=== PATIENT | male | born 1960 | race Caucasian/White ===

== ENCOUNTER 2018-02-19 15:09 | Inpatient (IN) | payer MEDICAID ==
[2018-02-19 17:48] LABS: ADD MAN DIFF? NO
[2018-02-19 17:51] LABS: WHITE BLOOD COUNT 8.7 10^3/ul (4.8-10.8)
[2018-02-19 17:51] LABS: BASOPHIL # 0.1 10^3/ul (0.0-0.1); BASOPHILS % 1.4 % (0.0-2.0); EOSINOPHILS # 0.2 10^3/ul (0.0-0.5); EOSINOPHILS % 2.6 % (0.0-7.0); HEMATOCRIT 28.2 % (42.0-52.0); HEMOGLOBIN 8.7 g/dl (14.0-18.0); LYMPHOCYTES # 1.6 10^3/ul (0.8-2.9); LYMPHOCYTES % 17.7 % (15.0-51.0); MEAN CORPUSCULAR HEMOGLOBIN 24.9 pg (29.0-33.0); MEAN CORPUSCULAR HGB CONC 30.9 g/dl (32.0-37.0); MEAN CORPUSCULAR VOLUME 80.8 fl (82.0-101.0); MEAN PLATELET VOLUME 9.4 fl (7.4-10.4); MONOCYTE # 0.6 10^3/ul (0.3-0.9); MONOCYTES % 6.8 % (0.0-11.0); NEUTROPHIL # 6.2 10^3/ul (1.6-7.5); NEUTROPHILS % 70.9 % (39.0-77.0); PLATELET COUNT 415 10^3/UL (140-415); RED BLOOD COUNT 3.49 10^6/ul (4.70-6.10); RED CELL DISTRIBUTION WIDTH 14.6 % (11.5-14.5)
[2018-02-19 18:10] LABS: INR 0.98; PROTIME 13.1 Sec (11.9-14.9)
[2018-02-19 18:14] LABS: ALANINE AMINOTRANSFERASE 26 IU/L (13-69); ALBUMIN 4.1 g/dl (3.3-4.9); ALBUMIN/GLOBULIN RATIO 0.83; ALKALINE PHOSPHATASE 152 IU/L (42-121); ANION GAP 12 (5-13); ASPARTATE AMINO TRANSFERASE 26 IU/L (15-46); BILIRUBIN,INDIRECT 0.2 mg/dl (0-1.1); BILIRUBIN,TOTAL 0.2 mg/dl (0.2-1.3); BLOOD UREA NITROGEN 45 mg/dl (7-20); CALCIUM 9.4 mg/dl (8.4-10.2); CARBON DIOXIDE 16 mmol/L (21-31); CHLORIDE 110 mmol/L (97-110); GLUCOSE 82 mg/dl (70-220); SODIUM 138 mmol/L (135-144)
[2018-02-19] MEDS: PIPER-TAZO 3.375 GM IV (PMX) 100 ML IVPB (18:14)
[2018-02-19 18:19] LABS: POTASSIUM 6.7 mmol/L (3.5-5.1)
[2018-02-19 18:24] LABS: TROPONIN-I < 0.012 ng/ml (0.000-0.120)
[2018-02-19] MEDS: NA POLYST SULFON 15 GM/60 ML BTL PO (19:01)
[2018-02-19] MEDS: CA CHLORIDE 10% 10 ML SYRINGE IV (19:01)
[2018-02-19] MEDS: NA BICARBONATE 8.4% 50 ML SYG IV (19:01)
[2018-02-19] MEDS: FUROSEMIDE 40 MG INJ IV (19:02)
[2018-02-19] MEDS: ALBUTEROL 0.5% (NEB) 2.5 MG/0.5 ML AMP INH (19:07)
[2018-02-19] MEDS ORDERED: ACETAMINOPHEN 650 MG SUPP PR (19:30)
[2018-02-19] MEDS ORDERED: VANCOMYCIN IV PER PHARMACY XX (19:30)
[2018-02-19] MEDS ORDERED: ONDANSETRON 4 MG INJ IV ×2 (19:30→21:30)
[2018-02-19] MEDS ORDERED: NACL 0.9% 3 ML SYG IV (19:30)
[2018-02-19] MEDS: VANCOMYCIN 1 GM (PMX) 250 ML IVPB (19:34)
[2018-02-19] MEDS: SOD CHLORIDE 0.9% 1,000 ML IV (19:55)
[2018-02-19] MEDS ORDERED: GLUCOSE GEL 15 GRAM TUBE PO ×2 (20:00)
[2018-02-19] MEDS ORDERED: GLUCOSE GEL 15 GRAM TUBE BUCCAL (20:00)
[2018-02-19] MEDS ORDERED: GLUCAGON 1 MG INJ IM (20:00)
[2018-02-19] MEDS ORDERED: DEXTROSE 50% 50 ML SYRINGE IV ×2 (20:00)
[2018-02-19 20:03] LABS: IRON 56 ug/dl (35-150)
[2018-02-19 20:13] LABS: % IRON SATURATION 18 % SAT (22-52); TOTAL IRON BINDING CAPACITY 305 ug/dl (241-421)
[2018-02-19 21:28] LABS: ANION GAP 11 (5-13); BLOOD UREA NITROGEN 45 mg/dl (7-20); CALCIUM 9.7 mg/dl (8.4-10.2); CARBON DIOXIDE 16 mmol/L (21-31); CHLORIDE 110 mmol/L (97-110); CREATININE 3.43 mg/dl (0.61-1.24); GLUCOSE 196 mg/dl (70-220); POTASSIUM 5.1 mmol/L (3.5-5.1); SODIUM 137 mmol/L (135-144)
[2018-02-19] MEDS ORDERED: ACETAMINOPHEN 325 MG TAB PO (21:30)
[2018-02-19] MEDS: VANCOMYCIN 1 GM in 250 ML IVPB (22:54)
[2018-02-19] MEDS: INSULIN ASPART [NOVOLOG] 3 ML PEN SC (23:12)
[2018-02-20] MEDS: ACCU-CHEK XX (01:50)
[2018-02-20 05:32] LABS: ADD MAN DIFF? NO
[2018-02-20 05:36] LABS: WHITE BLOOD COUNT 6.5 10^3/ul (4.8-10.8)
[2018-02-20 05:36] LABS: BASOPHIL # 0.1 10^3/ul (0.0-0.1); BASOPHILS % 1.7 % (0.0-2.0); EOSINOPHILS # 0.2 10^3/ul (0.0-0.5); EOSINOPHILS % 2.8 % (0.0-7.0); HEMATOCRIT 23.3 % (42.0-52.0); HEMOGLOBIN 7.1 g/dl (14.0-18.0); LYMPHOCYTES # 1.2 10^3/ul (0.8-2.9); LYMPHOCYTES % 18.9 % (15.0-51.0); MEAN CORPUSCULAR HEMOGLOBIN 24.7 pg (29.0-33.0); MEAN CORPUSCULAR HGB CONC 30.5 g/dl (32.0-37.0); MEAN CORPUSCULAR VOLUME 80.9 fl (82.0-101.0); MEAN PLATELET VOLUME 9.4 fl (7.4-10.4); MONOCYTE # 0.5 10^3/ul (0.3-0.9); MONOCYTES % 8.1 % (0.0-11.0); NEUTROPHIL # 4.4 10^3/ul (1.6-7.5); PLATELET COUNT 356 10^3/UL (140-415); RED BLOOD COUNT 2.88 10^6/ul (4.70-6.10); RED CELL DISTRIBUTION WIDTH 14.4 % (11.5-14.5)
[2018-02-20 06:06] LABS: ALANINE AMINOTRANSFERASE 28 IU/L (13-69); ALBUMIN 2.8 g/dl (3.3-4.9); ALKALINE PHOSPHATASE 118 IU/L (42-121); ANION GAP 8 (5-13); ASPARTATE AMINO TRANSFERASE 16 IU/L (15-46); BILIRUBIN,INDIRECT 0.2 mg/dl (0-1.1); BILIRUBIN,TOTAL 0.2 mg/dl (0.2-1.3); BLOOD UREA NITROGEN 44 mg/dl (7-20); CALCIUM 9.5 mg/dl (8.4-10.2); CARBON DIOXIDE 21 mmol/L (21-31); CHLORIDE 110 mmol/L (97-110); CHOL/HDL RATIO 3.6 RATIO; CHOLESTEROL 150 mg/dl (100-200); CREATININE 3.29 mg/dl (0.61-1.24); GLUCOSE 127 mg/dl (70-220); HDL CHOLESTEROL 41 mg/dl (28-71); LDL CHOLESTEROL,CALCULATED 95 mg/dl; MAGNESIUM 2.1 mg/dl (1.7-2.5); SODIUM 139 mmol/L (135-144); TOTAL PROTEIN 6.3 g/dl (6.1-8.1); TRIGLYCERIDES 70 mg/dl (0-149)
[2018-02-20 06:08] LABS: POTASSIUM 6.2 mmol/L (3.5-5.1)
[2018-02-20 06:17] LABS: FREE THYROXINE INDEX (Calc) 2.13 ug/ml (0.65-3.89); T3 UPTAKE 40.9 % (23.5-40.5); T4 (THYROXINE) 5.2 ug/dl (5.5-11.0)
[2018-02-20] MEDS ORDERED: ALBUTEROL 0.083% (NEB) 2.5 MG/3 ML AMP (06:25)
[2018-02-20] MEDS: ALBUTEROL 0.083% (NEB) 2.5 MG/3 ML AMP HHN (06:27)
[2018-02-20] MEDS: NA POLYST SULFON 15 GM/60 ML BTL PO ×2 (06:44→15:15)
[2018-02-20] MEDS: SOD CHLORIDE 0.9% 500 ML IV (06:46)
[2018-02-20 07:14] LABS: HEMOGLOBIN A1C 6.7 % (0-5.9)
[2018-02-20] MEDS: INSULIN ASPART [NOVOLOG] 3 ML PEN SC ×4 (08:00→20:04)
[2018-02-20] MEDS: AMLODIPINE 10 MG TAB PO (08:17)
[2018-02-20] MEDS: FLUCONAZOLE 200 MG TAB PO (08:17)
[2018-02-20 13:08] LABS: ADD UMIC YES; UR ASCORBIC ACID NEGATIVE (NEGATIVE); UR BILIRUBIN (Dip) NEGATIVE (NEGATIVE); UR BLOOD (Dip) 1+ mg/dL (NEGATIVE); UR CLARITY CLEAR (CLEAR); UR COLOR YELLOW (YELLOW); UR GLUCOSE (Dip) 1+ mg/dL (NEGATIVE); UR KETONES (Dip) NEGATIVE (NEGATIVE); UR LEUKOCYTE ESTERASE (Dip) NEGATIVE Leu/ul (NEGATIVE); UR NITRITE (Dip) NEGATIVE (NEGATIVE); UR RBC 1 /HPF (0-5); UR SPECIFIC GRAVITY (Dip) 1.014 (1.003-1.030); UR TOTAL PROTEIN (Dip) 2+ mg/dl (NEGATIVE); UR UROBILINOGEN (Dip) NEGATIVE (NEGATIVE); UR WBC 0 /HPF (0-5)
[2018-02-20] MEDS: SOD CHLORIDE 0.9% 1,000 ML IV (14:29)
[2018-02-20] MEDS: CEFEPIME 1GM/50 ML (PMX) 50 ML IVPB (14:30)
[2018-02-20] MEDS ORDERED: DAPTOMYCIN 385 MG in SOD CHLORIDE 0.9% 100 ML IVPB (14:30)
[2018-02-20 14:41] LABS: ANION GAP 6 (5-13); BLOOD UREA NITROGEN 41 mg/dl (7-20); CALCIUM 9.5 mg/dl (8.4-10.2); CARBON DIOXIDE 23 mmol/L (21-31); CHLORIDE 114 mmol/L (97-110); CREATININE 3.11 mg/dl (0.61-1.24); GLUCOSE 115 mg/dl (70-220); POTASSIUM 5.9 mmol/L (3.5-5.1); SODIUM 143 mmol/L (135-144)
[2018-02-20 15:20] LABS: SODIUM,URINE RANDOM 91 mmol/L (30-90)
[2018-02-20 15:20] LABS: CREATININE,URINE RANDOM 93.75 mg/dl (20-370)
[2018-02-20 16:11] LABS: POTASSIUM 5.6 mmol/L (3.5-5.1)
[2018-02-20] MEDS: METOPROLOL 25 MG TAB PO (16:43)
[2018-02-20] MEDS: DAPTOMYCIN 385 MG in SOD CHLORIDE 0.9% 100 ML IVPB (16:51)
[2018-02-21 00:07] LABS: IMMEDIATE SPIN CROSSMATCH 1 2
[2018-02-21] MEDS: ACCU-CHEK XX (01:19)
[2018-02-21] MEDS: SOD CHLORIDE 0.9% 1,000 ML IV (03:25)
[2018-02-21 06:03] LABS: CREATINE KINASE 87 IU/L (23-200)
[2018-02-21] MEDS: METOPROLOL 25 MG TAB PO ×3 (06:25→20:05)
[2018-02-21] MEDS: hydrALAzine 20 MG INJ IV (06:37)
[2018-02-21] MEDS: INSULIN ASPART [NOVOLOG] 3 ML PEN SC ×4 (08:00→20:14)
[2018-02-21] MEDS: CEFEPIME 1GM/50 ML (PMX) 50 ML IVPB (08:05)
[2018-02-21] MEDS: FLUCONAZOLE 200 MG TAB PO (08:05)
[2018-02-21] MEDS: AMLODIPINE 10 MG TAB PO (08:06)
[2018-02-21 08:20] LABS: ANION GAP 10 (5-13); BLOOD UREA NITROGEN 37 mg/dl (7-20); CALCIUM 9.2 mg/dl (8.4-10.2); CARBON DIOXIDE 19 mmol/L (21-31); CHLORIDE 116 mmol/L (97-110); CREATININE 2.55 mg/dl (0.61-1.24); GLUCOSE 98 mg/dl (70-220); POTASSIUM 4.9 mmol/L (3.5-5.1); SODIUM 145 mmol/L (135-144)
[2018-02-21] MEDS ORDERED: HYDROmorphONE 1 MG/5 ML IV SYRINGE IV ×3 (09:00)
[2018-02-21] MEDS ORDERED: DIPHENHYDRAMINE 50 MG INJ IV (09:00)
[2018-02-21] MEDS ORDERED: FENTAnyl 50 MCG/ML VIAL IV ×2 (09:00)
[2018-02-21] MEDS ORDERED: ONDANSETRON 4 MG INJ IV (09:00)
[2018-02-21] MEDS ORDERED: LEVALBUTEROL (NEB) 1.25 MG/0.5 ML AMP HHN (09:00)
[2018-02-21] MEDS ORDERED: IPRATROPIUM (NEB) 0.5 MG/2.5 ML AMP HHN (09:00)
[2018-02-21] MEDS ORDERED: LABETALOL HCL 20MG INJ IV (09:00)
[2018-02-21] MEDS ORDERED: hydrALAzine 20 MG INJ IV (09:00)
[2018-02-21 09:45] LABS: ADD MAN DIFF? NO
[2018-02-21 09:47] LABS: BASOPHIL # 0.1 10^3/ul (0.0-0.1); BASOPHILS % 1.9 % (0.0-2.0); EOSINOPHILS # 0.3 10^3/ul (0.0-0.5); EOSINOPHILS % 5.6 % (0.0-7.0); LYMPHOCYTES # 1.6 10^3/ul (0.8-2.9); LYMPHOCYTES % 29.9 % (15.0-51.0); MEAN CORPUSCULAR HEMOGLOBIN 25.9 pg (29.0-33.0); MEAN CORPUSCULAR VOLUME 83.6 fl (82.0-101.0); MEAN PLATELET VOLUME 9.8 fl (7.4-10.4); MONOCYTE # 0.5 10^3/ul (0.3-0.9); MONOCYTES % 8.8 % (0.0-11.0); NEUTROPHIL # 2.8 10^3/ul (1.6-7.5); NEUTROPHILS % 53.4 % (39.0-77.0); PLATELET COUNT 368 10^3/UL (140-415); RED BLOOD COUNT 3.47 10^6/ul (4.70-6.10)
[2018-02-21 09:47] LABS: WHITE BLOOD COUNT 5.3 10^3/ul (4.8-10.8)
[2018-02-21] MEDS ORDERED: FENTAnyl 50 MCG/ML VIAL (10:40)
[2018-02-21] MEDS ORDERED: LIDOCAINE 2% (SDV) 5 ML INJ (10:41)
[2018-02-21] MEDS ORDERED: PROPOFOL 20 ML (10:41)
[2018-02-21] MEDS ORDERED: METOCLOPRAMIDE 10 MG INJ (10:41)
[2018-02-21] MEDS ORDERED: MIDAZOLAM 1 MG/ML 2 ML INJ (10:41)
[2018-02-21] MEDS ORDERED: PHENYLephrine (100 MCG/ML) 5ML SYG (10:41)
[2018-02-21] MEDS ORDERED: ROPIVACAINE 0.5 % 30 ML VIAL (10:51)
[2018-02-21] MEDS ORDERED: POLYMYXIN B 500000 UNIT INJ (10:59)
[2018-02-21] MEDS: VANCOMYCIN 1 GM INJ (11:33)
[2018-02-22] MEDS ORDERED: hydrALAzine 20 MG INJ IV (01:00)
[2018-02-22] MEDS: ACCU-CHEK XX (02:44)
[2018-02-22 05:49] LABS: ADD MAN DIFF? NO
[2018-02-22 05:51] LABS: WHITE BLOOD COUNT 7.8 10^3/ul (4.8-10.8)
[2018-02-22 05:51] LABS: BASOPHIL # 0.1 10^3/ul (0.0-0.1); BASOPHILS % 1.7 % (0.0-2.0); EOSINOPHILS # 0.3 10^3/ul (0.0-0.5); EOSINOPHILS % 3.3 % (0.0-7.0); HEMATOCRIT 27.5 % (42.0-52.0); HEMOGLOBIN 8.6 g/dl (14.0-18.0); LYMPHOCYTES # 1.7 10^3/ul (0.8-2.9); LYMPHOCYTES % 21.6 % (15.0-51.0); MEAN CORPUSCULAR HEMOGLOBIN 25.7 pg (29.0-33.0); MEAN CORPUSCULAR HGB CONC 31.3 g/dl (32.0-37.0); MEAN CORPUSCULAR VOLUME 82.1 fl (82.0-101.0); MEAN PLATELET VOLUME 9.8 fl (7.4-10.4); MONOCYTE # 0.6 10^3/ul (0.3-0.9); MONOCYTES % 7.1 % (0.0-11.0); NEUTROPHIL # 5.1 10^3/ul (1.6-7.5); PLATELET COUNT 342 10^3/UL (140-415); RED BLOOD COUNT 3.35 10^6/ul (4.70-6.10); RED CELL DISTRIBUTION WIDTH 15.1 % (11.5-14.5)
[2018-02-22 06:16] LABS: ANION GAP 9 (5-13); BLOOD UREA NITROGEN 34 mg/dl (7-20); CALCIUM 8.9 mg/dl (8.4-10.2); CARBON DIOXIDE 21 mmol/L (21-31); CHLORIDE 111 mmol/L (97-110); CREATININE 2.18 mg/dl (0.61-1.24); GLUCOSE 160 mg/dl (70-220); MAGNESIUM 2.2 mg/dl (1.7-2.5); PHOSPHORUS 4.6 mg/dl (2.5-4.9); POTASSIUM 4.9 mmol/L (3.5-5.1); SODIUM 141 mmol/L (135-144)
[2018-02-22] MEDS: FLUCONAZOLE 200 MG TAB PO (07:56)
[2018-02-22] MEDS: METOPROLOL 25 MG TAB PO ×2 (07:56→20:44)
[2018-02-22] MEDS: CEFEPIME 1GM/50 ML (PMX) 50 ML IVPB (07:57)
[2018-02-22] MEDS: AMLODIPINE 10 MG TAB PO (07:57)
[2018-02-22] MEDS: INSULIN ASPART [NOVOLOG] 3 ML PEN SC ×4 (08:10→20:52)
[2018-02-22] MEDS: NIFEdipine (XL) 60 MG TAB PO ×2 (09:29→20:45)
[2018-02-22] MEDS: DAPTOMYCIN 385 MG in SOD CHLORIDE 0.9% 100 ML IVPB (16:00)
[2018-02-22 17:35] LABS: CREATININE, RANDOM URINE 93 mg/dL (20-320); MICROALBUMIN 136.4 mg/dL; MICROALBUMIN/CREATININE RATIO 1467 (<30)
[2018-02-23] MEDS: ACCU-CHEK XX (02:00)
[2018-02-23 04:46] LABS: PROTEIN, TOTAL 6.5 g/dL (6.1-8.1)
[2018-02-23 05:40] LABS: ADD MAN DIFF? NO
[2018-02-23 05:54] LABS: WHITE BLOOD COUNT 6.6 10^3/ul (4.8-10.8)
[2018-02-23 05:54] LABS: BASOPHIL # 0.1 10^3/ul (0.0-0.1); BASOPHILS % 1.7 % (0.0-2.0); EOSINOPHILS # 0.4 10^3/ul (0.0-0.5); EOSINOPHILS % 5.6 % (0.0-7.0); HEMATOCRIT 27.5 % (42.0-52.0); HEMOGLOBIN 8.5 g/dl (14.0-18.0); LYMPHOCYTES % 30.3 % (15.0-51.0); MEAN CORPUSCULAR HEMOGLOBIN 25.5 pg (29.0-33.0); MEAN CORPUSCULAR HGB CONC 30.9 g/dl (32.0-37.0); MEAN CORPUSCULAR VOLUME 82.6 fl (82.0-101.0); MEAN PLATELET VOLUME 9.8 fl (7.4-10.4); MONOCYTE # 0.5 10^3/ul (0.3-0.9); MONOCYTES % 6.8 % (0.0-11.0); NEUTROPHIL # 3.7 10^3/ul (1.6-7.5); NEUTROPHILS % 55.3 % (39.0-77.0); PLATELET COUNT 317 10^3/UL (140-415); RED BLOOD COUNT 3.33 10^6/ul (4.70-6.10)
[2018-02-23 06:09] LABS: ANION GAP 7 (5-13); BLOOD UREA NITROGEN 35 mg/dl (7-20); CALCIUM 8.8 mg/dl (8.4-10.2); CARBON DIOXIDE 21 mmol/L (21-31); CHLORIDE 110 mmol/L (97-110); CREATININE 2.25 mg/dl (0.61-1.24); GLUCOSE 157 mg/dl (70-220); MAGNESIUM 2.3 mg/dl (1.7-2.5); PHOSPHORUS 4.7 mg/dl (2.5-4.9); POTASSIUM 4.5 mmol/L (3.5-5.1); SODIUM 138 mmol/L (135-144)
[2018-02-23] MEDS: METOPROLOL 25 MG TAB PO ×2 (07:46→20:09)
[2018-02-23] MEDS: FLUCONAZOLE 200 MG TAB PO (07:46)
[2018-02-23] MEDS: CEFEPIME 1GM/50 ML (PMX) 50 ML IVPB (07:46)
[2018-02-23] MEDS: NIFEdipine (XL) 60 MG TAB PO ×2 (07:46→20:09)
[2018-02-23] MEDS: INSULIN ASPART [NOVOLOG] 3 ML PEN SC ×4 (08:32→20:22)
[2018-02-23 08:49] LABS: HAAIG REFLEX REFLEX FILED
[2018-02-23] MEDS: LIDOCAINE 1% (MPF) 5 ML VIAL SC (09:00)
[2018-02-23 09:28] LABS: COMPLEMENT C3 135 mg/dl (88-165); COMPLEMENT C4 58 mg/dl (14-44)
[2018-02-23 09:51] LABS: HEPATITIS B SURFACE ANTIGEN NEGATIVE (NEGATIVE)
[2018-02-23 10:09] LABS: HEPATITIS B CORE ANTIBODY NEGATIVE (NEGATIVE); HEPATITIS C VIRAL ANTIBODY NEGATIVE (NEGATIVE)
[2018-02-23] MEDS: LACTULOSE 30ML CUP PO (12:08)
[2018-02-23 16:06] LABS: ALBUMIN 2.6 g/dL (3.8-4.8); ALPHA-1-GLOBULINS 0.4 g/dL (0.2-0.3); ALPHA-2-GLOBULINS 1.2 g/dL (0.5-0.9); BETA 2 GLOBULINS 0.4 g/dL (0.2-0.5); BETA GLOBULINS 0.5 g/dL (0.4-0.6); GAMMA GLOBULINS 1.4 g/dL (0.8-1.7)
[2018-02-23 16:56] LABS: CREATININE, RANDOM URINE 126 mg/dL (20-320); PROTEIN/CREATININE RATIO 4183 mg/g creat (22-128)
[2018-02-23 18:40] LABS: RHEUMATOID FACTOR NEGATIVE (NEGATIVE)
[2018-02-23] MEDS: DAPTOMYCIN IVPB (20:08)
[2018-02-23] MEDS: SOD CHLORIDE 0.9% IVPB (20:08)
[2018-02-24] MEDS: ACCU-CHEK XX (01:48)
[2018-02-24] MEDS: MAGNESIUM HYDROXIDE 30ML CUP PO (05:32)
[2018-02-24 05:52] LABS: ADD MAN DIFF? NO
[2018-02-24 05:59] LABS: WHITE BLOOD COUNT 6.7 10^3/ul (4.8-10.8)
[2018-02-24 05:59] LABS: BASOPHIL # 0.1 10^3/ul (0.0-0.1); BASOPHILS % 1.5 % (0.0-2.0); EOSINOPHILS # 0.3 10^3/ul (0.0-0.5); EOSINOPHILS % 4.9 % (0.0-7.0); HEMATOCRIT 26.4 % (42.0-52.0); HEMOGLOBIN 8.4 g/dl (14.0-18.0); LYMPHOCYTES # 1.2 10^3/ul (0.8-2.9); LYMPHOCYTES % 17.3 % (15.0-51.0); MEAN CORPUSCULAR HEMOGLOBIN 25.7 pg (29.0-33.0); MEAN CORPUSCULAR HGB CONC 31.8 g/dl (32.0-37.0); MEAN CORPUSCULAR VOLUME 80.7 fl (82.0-101.0); MEAN PLATELET VOLUME 9.8 fl (7.4-10.4); MONOCYTE # 0.4 10^3/ul (0.3-0.9); MONOCYTES % 5.5 % (0.0-11.0); NEUTROPHIL # 4.7 10^3/ul (1.6-7.5); NEUTROPHILS % 70.5 % (39.0-77.0); PLATELET COUNT 291 10^3/UL (140-415); RED BLOOD COUNT 3.27 10^6/ul (4.70-6.10); RED CELL DISTRIBUTION WIDTH 14.8 % (11.5-14.5)
[2018-02-24 06:33] LABS: ANION GAP 9 (5-13); BLOOD UREA NITROGEN 39 mg/dl (7-20); CALCIUM 8.8 mg/dl (8.4-10.2); CARBON DIOXIDE 18 mmol/L (21-31); CHLORIDE 110 mmol/L (97-110); CREATININE 2.06 mg/dl (0.61-1.24); Estimated GFR 34 mL/min (>60); GLUCOSE 161 mg/dl (70-220); MAGNESIUM 2.3 mg/dl (1.7-2.5); PHOSPHORUS 4.2 mg/dl (2.5-4.9); POTASSIUM 4.3 mmol/L (3.5-5.1); SODIUM 137 mmol/L (135-144)
[2018-02-24] MEDS: INSULIN ASPART [NOVOLOG] 3 ML PEN SC ×2 (07:35→12:07)
[2018-02-24] MEDS: CEFEPIME 1GM/50 ML (PMX) 50 ML IVPB (09:05)
[2018-02-24] MEDS: METOPROLOL 25 MG TAB PO (09:07)
[2018-02-24] MEDS: NIFEdipine (XL) 60 MG TAB PO (09:07)
[2018-02-24] MEDS: FLUCONAZOLE 200 MG TAB PO (09:07)
[2018-02-24] MEDS: DOCUSATE SODIUM 100 MG CAP PO (09:07)
[2018-02-24 13:47] LABS: ANCA SCREEN NEGATIVE (NEGATIVE)
[2018-02-24 17:36] LABS: ANA SCREEN POSITIVE (NEGATIVE); MYELOPEROXIDASE ANTIBODY <1.0 AI; PROTEINASE-3 ANTIBODY <1.0 AI
[2018-02-24 19:51] LABS: ANA PATTERN SPECKLED; ANA TITER 1:40 titer
[2018-02-25 15:21] LABS: ANTI-DNA (DOUBLE STRANDED) <95 U/mL (< 301)
== END 2018-02-24 16:50 | disposition home or self-care (01) | DRG 623 ==
LOC: E/R 15:09 → 6WM 21:14
PROC: 0HXMXZZ Transfer Right Foot Skin, External Approach (ICD-10-PCS; principal; 2018-02-21 10:42)
PROC: 0QBN0ZZ Excision of Right Metatarsal, Open Approach (ICD-10-PCS; 2018-02-21 10:42)
PROC: 02HV33Z Insertion of Infusion Device into Superior Vena Cava, Percutaneous Approach (ICD-10-PCS; 2018-02-21 10:42)
PROC: B54NZZA Ultrasonography of Left Upper Extremity Veins, Guidance (ICD-10-PCS; 2018-02-21 10:42)
PROC: 30233N1 Transfusion of Nonautologous Red Blood Cells into Peripheral Vein, Percutaneous Approach (ICD-10-PCS; 2018-02-21 10:42)
DX: E11.621 Type 2 diabetes mellitus with foot ulcer (principal); L97.414 Non-pressure chronic ulcer of right heel and midfoot with necrosis of bone; M86.8X7 Other osteomyelitis, ankle and foot; E11.69 Type 2 diabetes mellitus with other specified complication; E87.5 Hyperkalemia; N17.0 Acute kidney failure with tubular necrosis; E11.22 Type 2 diabetes mellitus with diabetic chronic kidney disease; I12.9 Hypertensive chronic kidney disease with stage 1 through stage 4 chronic kidney disease, or unspecified chronic kidney disease; N18.9 Chronic kidney disease, unspecified; E11.42 Type 2 diabetes mellitus with diabetic polyneuropathy; D50.9 Iron deficiency anemia, unspecified; D63.8 Anemia in other chronic diseases classified elsewhere; Z89.421 Acquired absence of other right toe(s); Z79.82 Long term (current) use of aspirin; Z79.84 Long term (current) use of oral hypoglycemic drugs
CPT/HCPCS: 36430; 36569; 71045; 73620; 76775; 76937; 80048; 80053; 80061; 81001; 81003; 82043; 82550; 82570; 82595; 82728; 82962; 83036; 83540; 83735; 84100; 84132; 84155; 84156; 84165; 84166; 84300; 84436; 84479; 84484; 85025; 85610; 85730; 86021; 86038; 86160; 86226; 86320; 86325; 86430; 86704; 86709; 86803; 86850; 86900; 86901; 86920; 87040; 87070; 87081; 87102; 87116; 87340; 88304; 88311; 93005; 94664; 96374; 96375; 97116; 97161; 97530; 99285-25

== ENCOUNTER 2018-04-08 15:34 | Inpatient (IN) | payer SELFPAY, MEDICAID ==
[2018-04-08 15:51] LABS: ADD MAN DIFF? NO
[2018-04-08 15:57] LABS: WHITE BLOOD COUNT 6.1 10^3/ul (4.8-10.8)
[2018-04-08 15:57] LABS: BASOPHIL # 0.1 10^3/ul (0.0-0.1); EOSINOPHILS # 0.2 10^3/ul (0.0-0.5); EOSINOPHILS % 2.9 % (0.0-7.0); HEMOGLOBIN 7.3 g/dl (14.0-18.0); LYMPHOCYTES # 1.6 10^3/ul (0.8-2.9); LYMPHOCYTES % 26.3 % (15.0-51.0); MEAN CORPUSCULAR HEMOGLOBIN 25.2 pg (29.0-33.0); MEAN CORPUSCULAR HGB CONC 31.7 g/dl (32.0-37.0); MEAN CORPUSCULAR VOLUME 79.3 fl (82.0-101.0); MEAN PLATELET VOLUME 9.9 fl (7.4-10.4); MONOCYTE # 0.6 10^3/ul (0.3-0.9); MONOCYTES % 9.8 % (0.0-11.0); NEUTROPHIL # 3.7 10^3/ul (1.6-7.5); NEUTROPHILS % 59.7 % (39.0-77.0); PLATELET COUNT 192 10^3/UL (140-415); RED CELL DISTRIBUTION WIDTH 19.3 % (11.5-14.5)
[2018-04-08 16:16] LABS: ANION GAP 13 (5-13); BLOOD UREA NITROGEN 30 mg/dl (7-20); CARBON DIOXIDE 20 mmol/L (21-31); CHLORIDE 108 mmol/L (97-110); CREATININE 1.81 mg/dl (0.61-1.24); Estimated GFR 39 mL/min (>60); GLUCOSE 137 mg/dl (70-220); SODIUM 141 mmol/L (135-144)
[2018-04-08 16:28] LABS: TROPONIN-I < 0.012 ng/ml (0.000-0.120)
[2018-04-08] MEDS ORDERED: ONDANSETRON 4 MG INJ IV ×2 (17:00)
[2018-04-08] MEDS ORDERED: ACETAMINOPHEN 325 MG TAB PO ×2 (17:00)
[2018-04-08] MEDS ORDERED: NACL 0.9% 3 ML SYG IV (17:00)
[2018-04-08] MEDS ORDERED: HYDROCODONE/APAP (5/325) TAB PO (17:00)
[2018-04-08 17:21] LABS: B-TYPE NATRIURETIC PEPTIDE 1100 PG/ML (0-125)
[2018-04-08 17:43] LABS: IRON 50 ug/dl (35-150)
[2018-04-08 17:44] LABS: ALANINE AMINOTRANSFERASE 40 IU/L (13-69); ALKALINE PHOSPHATASE 117 IU/L (42-121); ASPARTATE AMINO TRANSFERASE 36 IU/L (15-46); BILIRUBIN,INDIRECT 0.2 mg/dl (0-1.1); BILIRUBIN,TOTAL 0.2 mg/dl (0.2-1.3); TOTAL PROTEIN 7.3 g/dl (6.1-8.1)
[2018-04-08 17:52] LABS: % IRON SATURATION 17 % SAT (22-52); TOTAL IRON BINDING CAPACITY 300 ug/dl (241-421)
[2018-04-08] MEDS: INSULIN ASPART [NOVOLOG] 3 ML PEN SC ×2 (18:00→20:48)
[2018-04-08 18:08] LABS: IMMEDIATE SPIN CROSSMATCH 1 2
[2018-04-08] MEDS: SOD CHLORIDE 0.9% 250 ML IV (18:20)
[2018-04-08] MEDS: FUROSEMIDE 40 MG INJ IV (18:26)
[2018-04-08] MEDS ORDERED: INSULIN GLARGINE [LANTus] (100 UNITS/ML) SYG SC (20:00)
[2018-04-08] MEDS: POLYETHYLENE GLYCOL 17 GM PACKET PO (20:47)
[2018-04-08] MEDS: METOPROLOL 25 MG TAB PO (20:48)
[2018-04-08] MEDS: hydrALAzine 20 MG INJ IV (20:48)
[2018-04-08 22:38] LABS: CREATINE KINASE 112 IU/L (23-200)
[2018-04-08 22:51] LABS: TROPONIN-I < 0.012 ng/ml (0.000-0.120)
[2018-04-09] MEDS: ACCU-CHEK XX (01:47)
[2018-04-09 04:01] LABS: ADD MAN DIFF? NO
[2018-04-09 04:06] LABS: WHITE BLOOD COUNT 5.1 10^3/ul (4.8-10.8)
[2018-04-09 04:06] LABS: BASOPHIL # 0.1 10^3/ul (0.0-0.1); EOSINOPHILS # 0.2 10^3/ul (0.0-0.5); EOSINOPHILS % 3.4 % (0.0-7.0); HEMATOCRIT 24.3 % (42.0-52.0); HEMOGLOBIN 7.9 g/dl (14.0-18.0); LYMPHOCYTES # 1.6 10^3/ul (0.8-2.9); LYMPHOCYTES % 31.6 % (15.0-51.0); MEAN CORPUSCULAR HGB CONC 32.5 g/dl (32.0-37.0); MEAN CORPUSCULAR VOLUME 79.9 fl (82.0-101.0); MEAN PLATELET VOLUME 9.5 fl (7.4-10.4); MONOCYTE # 0.5 10^3/ul (0.3-0.9); MONOCYTES % 10.7 % (0.0-11.0); NEUTROPHIL # 2.7 10^3/ul (1.6-7.5); NEUTROPHILS % 52.9 % (39.0-77.0); PLATELET COUNT 166 10^3/UL (140-415); RED BLOOD COUNT 3.04 10^6/ul (4.70-6.10); RED CELL DISTRIBUTION WIDTH 18.4 % (11.5-14.5)
[2018-04-09 04:10] LABS: HEMOGLOBIN A1C 5.9 % (0-5.9)
[2018-04-09 04:20] LABS: CREATINE KINASE 94 IU/L (23-200)
[2018-04-09 04:22] LABS: ALANINE AMINOTRANSFERASE 33 IU/L (13-69); ALBUMIN 3.6 g/dl (3.3-4.9); ALBUMIN/GLOBULIN RATIO 1.24; ALKALINE PHOSPHATASE 87 IU/L (42-121); ANION GAP 9 (5-13); ASPARTATE AMINO TRANSFERASE 24 IU/L (15-46); BILIRUBIN,INDIRECT 1.2 mg/dl (0-1.1); BILIRUBIN,TOTAL 1.2 mg/dl (0.2-1.3); BLOOD UREA NITROGEN 32 mg/dl (7-20); CALCIUM 8.7 mg/dl (8.4-10.2); CARBON DIOXIDE 23 mmol/L (21-31); CHLORIDE 109 mmol/L (97-110); CHOLESTEROL 140 mg/dl (100-200); CREATININE 1.86 mg/dl (0.61-1.24); Estimated GFR 38 mL/min (>60); GLUCOSE 88 mg/dl (70-220); HDL CHOLESTEROL 35 mg/dl (28-71); LDL CHOLESTEROL,CALCULATED 83 mg/dl; MAGNESIUM 2.3 mg/dl (1.7-2.5); POTASSIUM 5.1 mmol/L (3.5-5.1); SODIUM 141 mmol/L (135-144); TOTAL PROTEIN 6.5 g/dl (6.1-8.1); TRIGLYCERIDES 112 mg/dl (0-149)
[2018-04-09 04:33] LABS: CK INDEX 0.7; TROPONIN-I < 0.012 ng/ml (0.000-0.120)
[2018-04-09] MEDS: FUROSEMIDE 40 MG INJ IV ×2 (05:57→17:29)
[2018-04-09] MEDS: INSULIN ASPART [NOVOLOG] 3 ML PEN SC ×4 (07:54→20:51)
[2018-04-09 08:26] LABS: IRON 130 ug/dl (35-150)
[2018-04-09 08:35] LABS: % IRON SATURATION 46 % SAT (22-52); TOTAL IRON BINDING CAPACITY 283 ug/dl (241-421)
[2018-04-09] MEDS: ASPIRIN (EC) 81 MG TAB PO (08:51)
[2018-04-09] MEDS: METOPROLOL 25 MG TAB PO ×2 (08:51→20:52)
[2018-04-09] MEDS: POLYETHYLENE GLYCOL 17 GM PACKET PO (08:51)
[2018-04-09] MEDS: AMLODIPINE 10 MG TAB PO (08:51)
[2018-04-09] MEDS ORDERED: ASPIRIN 81 MG TAB PO (09:00)
[2018-04-09 11:26] LABS: HEMATOCRIT 26.5 % (42.0-52.0); HEMOGLOBIN 8.6 g/dl (14.0-18.0); RETICULOCYTE COUNT # 0.076 X10^6 (0.020-0.110); RETICULOCYTE COUNT % 2.3 % (0.5-1.5)
[2018-04-09 11:26] LABS: RETICULOCYTE RBC 3.33
[2018-04-09 11:47] LABS: LACTATE DEHYDROGENASE 464 IU/L (313-618)
[2018-04-09] MEDS: LACTULOSE 30ML CUP PO (14:27)
[2018-04-09] MEDS: hydrALAzine 20 MG INJ IV (16:18)
[2018-04-09] MEDS: DOCUSATE SODIUM 100 MG CAP PO (20:54)
[2018-04-10] MEDS: ACCU-CHEK XX (02:00)
[2018-04-10] MEDS: hydrALAzine 20 MG INJ IV ×3 (03:45→20:59)
[2018-04-10] MEDS: FUROSEMIDE 40 MG INJ IV ×2 (05:37→17:19)
[2018-04-10 06:08] LABS: ADD MAN DIFF? NO
[2018-04-10 06:14] LABS: WHITE BLOOD COUNT 5.8 10^3/ul (4.8-10.8)
[2018-04-10 06:14] LABS: BASOPHIL # 0.1 10^3/ul (0.0-0.1); BASOPHILS % 0.9 % (0.0-2.0); EOSINOPHILS # 0.3 10^3/ul (0.0-0.5); HEMATOCRIT 27.2 % (42.0-52.0); HEMOGLOBIN 8.8 g/dl (14.0-18.0); LYMPHOCYTES # 1.8 10^3/ul (0.8-2.9); LYMPHOCYTES % 31.9 % (15.0-51.0); MEAN CORPUSCULAR HGB CONC 32.4 g/dl (32.0-37.0); MEAN CORPUSCULAR VOLUME 80.5 fl (82.0-101.0); MEAN PLATELET VOLUME 9.6 fl (7.4-10.4); MONOCYTE # 0.6 10^3/ul (0.3-0.9); MONOCYTES % 10.2 % (0.0-11.0); NEUTROPHILS % 51.5 % (39.0-77.0); PLATELET COUNT 201 10^3/UL (140-415); RED BLOOD COUNT 3.38 10^6/ul (4.70-6.10); RED CELL DISTRIBUTION WIDTH 19.2 % (11.5-14.5)
[2018-04-10 06:52] LABS: ANION GAP 10 (5-13); BLOOD UREA NITROGEN 29 mg/dl (7-20); CALCIUM 9.1 mg/dl (8.4-10.2); CARBON DIOXIDE 22 mmol/L (21-31); CHLORIDE 110 mmol/L (97-110); CREATININE 1.82 mg/dl (0.61-1.24); Estimated GFR 39 mL/min (>60); GLUCOSE 98 mg/dl (70-220); MAGNESIUM 2.2 mg/dl (1.7-2.5); PHOSPHORUS 4.9 mg/dl (2.5-4.9); POTASSIUM 4.8 mmol/L (3.5-5.1); SODIUM 142 mmol/L (135-144)
[2018-04-10] MEDS: INSULIN ASPART [NOVOLOG] 3 ML PEN SC ×4 (08:00→22:03)
[2018-04-10] MEDS: METOPROLOL 25 MG TAB PO ×2 (08:20→20:53)
[2018-04-10] MEDS: AMLODIPINE 10 MG TAB PO (08:20)
[2018-04-10] MEDS: ASPIRIN (EC) 81 MG TAB PO (08:20)
[2018-04-10] MEDS: DOCUSATE SODIUM 100 MG CAP PO ×2 (08:24→20:52)
[2018-04-10] MEDS: POLYETHYLENE GLYCOL 17 GM PACKET PO (08:25)
[2018-04-10] MEDS: REGADENOSON 0.4 MG/5 ML SYG (10:30)
[2018-04-10 16:11] LABS: HAPTOGLOBIN 236 mg/dL (43-212)
[2018-04-10] MEDS ORDERED: GLUCOSE GEL 15 GRAM TUBE BUCCAL (18:30)
[2018-04-10] MEDS ORDERED: DEXTROSE 50% 50 ML SYRINGE IV ×2 (18:30)
[2018-04-10] MEDS ORDERED: GLUCOSE GEL 15 GRAM TUBE PO ×2 (18:30)
[2018-04-10] MEDS ORDERED: GLUCAGON 1 MG INJ IM (18:30)
[2018-04-11] MEDS: ACCU-CHEK XX (02:03)
[2018-04-11] MEDS: FUROSEMIDE 40 MG INJ IV (05:59)
[2018-04-11] MEDS: hydrALAzine 20 MG INJ IV (06:00)
[2018-04-11 06:19] LABS: ADD MAN DIFF? NO
[2018-04-11 06:28] LABS: BASOPHIL # 0.1 10^3/ul (0.0-0.1); EOSINOPHILS # 0.3 10^3/ul (0.0-0.5); HEMATOCRIT 27.2 % (42.0-52.0); HEMOGLOBIN 8.6 g/dl (14.0-18.0); LYMPHOCYTES # 1.5 10^3/ul (0.8-2.9); LYMPHOCYTES % 29.9 % (15.0-51.0); MEAN CORPUSCULAR HEMOGLOBIN 25.9 pg (29.0-33.0); MEAN CORPUSCULAR HGB CONC 31.6 g/dl (32.0-37.0); MEAN CORPUSCULAR VOLUME 81.9 fl (82.0-101.0); MEAN PLATELET VOLUME 9.8 fl (7.4-10.4); MONOCYTE # 0.5 10^3/ul (0.3-0.9); MONOCYTES % 10.8 % (0.0-11.0); NEUTROPHIL # 2.6 10^3/ul (1.6-7.5); NEUTROPHILS % 53.1 % (39.0-77.0); PLATELET COUNT 209 10^3/UL (140-415); RED BLOOD COUNT 3.32 10^6/ul (4.70-6.10); RED CELL DISTRIBUTION WIDTH 19.6 % (11.5-14.5)
[2018-04-11 06:49] LABS: ANION GAP 9 (5-13); BLOOD UREA NITROGEN 34 mg/dl (7-20); CALCIUM 8.9 mg/dl (8.4-10.2); CARBON DIOXIDE 23 mmol/L (21-31); CHLORIDE 108 mmol/L (97-110); CREATININE 1.88 mg/dl (0.61-1.24); Estimated GFR 37 mL/min (>60); GLUCOSE 129 mg/dl (70-220); MAGNESIUM 2.4 mg/dl (1.7-2.5); PHOSPHORUS 5.7 mg/dl (2.5-4.9); POTASSIUM 4.6 mmol/L (3.5-5.1); SODIUM 140 mmol/L (135-144)
[2018-04-11] MEDS: INSULIN ASPART [NOVOLOG] 3 ML PEN SC (07:25)
[2018-04-11] MEDS: METOPROLOL 25 MG TAB PO (08:50)
[2018-04-11] MEDS: DOCUSATE SODIUM 100 MG CAP PO (08:50)
[2018-04-11] MEDS: ASPIRIN (EC) 81 MG TAB PO (08:50)
[2018-04-11] MEDS: AMLODIPINE 10 MG TAB PO (08:50)
[2018-04-11] MEDS: POLYETHYLENE GLYCOL 17 GM PACKET PO (08:51)
[2018-04-11] MEDS ORDERED: FUROSEMIDE 20 MG TAB PO (18:00)
== END 2018-04-11 11:04 | disposition home or self-care (01) | DRG 292 ==
LOC: E/R 15:34 → 6WM 16:41
PROC: 30233N1 Transfusion of Nonautologous Red Blood Cells into Peripheral Vein, Percutaneous Approach (ICD-10-PCS; principal; 2018-04-08)
DX: I13.0 Hypertensive heart and chronic kidney disease with heart failure and stage 1 through stage 4 chronic kidney disease, or unspecified chronic kidney disease (principal); N17.9 Acute kidney failure, unspecified; I50.1 Left ventricular failure, unspecified; R06.02 Shortness of breath; E11.22 Type 2 diabetes mellitus with diabetic chronic kidney disease; N18.3 Chronic kidney disease, stage 3 (moderate); E11.21 Type 2 diabetes mellitus with diabetic nephropathy; I25.10 Atherosclerotic heart disease of native coronary artery without angina pectoris; E11.40 Type 2 diabetes mellitus with diabetic neuropathy, unspecified; E11.621 Type 2 diabetes mellitus with foot ulcer; L97.529 Non-pressure chronic ulcer of other part of left foot with unspecified severity; D63.8 Anemia in other chronic diseases classified elsewhere; R60.9 Edema, unspecified
CPT/HCPCS: 36415; 36430; 71045; 78452; 80048; 80053; 80061; 80076; 82550; 82553; 82728; 82962; 83010; 83036; 83540; 83615; 83735; 83880; 84100; 84443; 84484; 85014; 85018; 85025; 85045; 86850; 86900; 86901; 86920; 87081; 93005; 93017; 93306; 93970; 99291-25